=== PATIENT | female | born 1995 | race Caucasian/White ===

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

== ENCOUNTER 2017-01-30 16:43 | Emergency (ER) | payer SELFPAY ==
[~2017-01-30] VITALS: Ht 154.9 cm; Wt 43.8 kg
[~2017-01-30 16:43] MED LIST changes: +FIORICET 50-301 EACH PO; +ZOFRAN4 MG PO
[2017-01-30] MEDS ORDERED: MOTRIN600 MG PO (18:38)
[2017-01-30] MEDS ORDERED: ROBITUSSIN AC,T10 ML PO (18:38)
[2017-01-30 18:59] VITALS: BP 116/73
== END 2017-01-30 19:00 | disposition home or self-care (01) ==
LOC: EME 16:43 → EXP 16:43
DX: J02.9 Acute pharyngitis, unspecified (principal); R05 Cough; R09.89 Other specified symptoms and signs involving the circulatory and respiratory systems; J34.89 Other specified disorders of nose and nasal sinuses; F17.200 Nicotine dependence, unspecified, uncomplicated
CPT/HCPCS: 87651 90; 99281; 99284

== ENCOUNTER 2017-05-10 22:18 | Emergency (ER) | payer OTHER ==
[~2017-05-10] VITALS: Ht 157.5 cm; Wt 49.5 kg
[~2017-05-10 22:18] MED LIST changes: +MOTRIN600 MG PO; +ROBITUSSIN AC,T10 ML PO
[2017-05-11 01:35] LABS: APPEARANCE SL.HAZY ((CLEAR)); BILIRUBIN NEGATIVE; BLOOD NEGATIVE; COLOR YELLOW ((YELLOW)); GLUCOSE (STRIP) NEGATIVE; KETONES NEGATIVE; LEUKOCYTES TRACE; NITRITE POSITIVE; PROTEIN (STRIP) NEGATIVE; SPECIFIC GRAVITY 1.013 (1.000-1.030); UROBILINOGEN 0.2 MG/DL (0.2-1.0)
[2017-05-11 01:45] LABS: BACTERIA 2+ /HPF; EPITHELIAL CELLS 1+ /HPF; MUCUS TRACE /LPF; RED BLOOD CELLS 0-5 /HPF (0-5); UCUL ADDED? YES
[2017-05-11 03:28] VITALS: BP 136/96
[2017-05-11 08:21] LABS: SOURCE SWAB
[2017-05-11 10:40] LABS: TREPONEMA ANTIBODY NEGATIVE (NEGATIVE)
[2017-05-11 10:42] LABS: HEPATITIS B SURFACE ANTIGEN Nonreactive
[2017-05-11 10:43] LABS: ANTI-HEPATITIS A VIRUS (IGM) Nonreactive
[2017-05-11 10:44] LABS: ANTI-HEPATITIS B CORE (IGM) Nonreactive; HIV-1/2 AB/AG COMBO Nonreactive
[2017-05-11 10:47] LABS: HEPATITIS C ANTIBODY REACTIVE
== END 2017-05-11 03:29 | disposition home or self-care (01) ==
LOC: EME 22:18
PROVIDERS: Emergency Medicine
DX: T76.21XA Adult sexual abuse, suspected, initial encounter (principal); N30.90 Cystitis, unspecified without hematuria; F17.200 Nicotine dependence, unspecified, uncomplicated; Z88.5 Allergy status to narcotic agent
CPT/HCPCS: 80074; 81003; 81025; 86780; 87077; 87086; 87186; 87210; 87389; 87491; 87591; 99281; 99284; J0696; Q0169

== ENCOUNTER 2017-07-07 17:31 | Emergency (ER) | payer OTHER ==
[~2017-07-07] VITALS: Ht 157.5 cm; Wt 51.6 kg
[2017-07-07] MEDS ORDERED: TYLENOL WITH C1 EACH PO (19:57)
[2017-07-07] MEDS ORDERED: AUGMENTIN875 MG PO (19:57)
[2017-07-07] MEDS ORDERED: MOTRIN600 MG PO (19:57)
[2017-07-07 20:06] VITALS: BP 95/88
== END 2017-07-07 20:07 | disposition home or self-care (01) ==
LOC: EME 17:31
PROC: 0C9XXZ0 Drainage of Lower Tooth, External Approach, Single (ICD-10-PCS; principal; 2017-07-07)
DX: K04.7 Periapical abscess without sinus (principal); B19.20 Unspecified viral hepatitis C without hepatic coma; F17.200 Nicotine dependence, unspecified, uncomplicated; Z86.19 Personal history of other infectious and parasitic diseases
CPT/HCPCS: 99281; 99283